=== PATIENT | male | born 1940 | race Caucasian/White ===

== ENCOUNTER 2019-06-21 13:02 | Day surgery (SDC) | payer MEDICARE ==
[~2019-06-21] VITALS: Ht 180.3 cm; Wt 78.5 kg
[~2019-06-21 13:02] MED LIST: BRIN10TA4 PO; CLAR10CA3 PO; CYMB1CAP4 PO; CYMB1CAP5 PO; DEXT10CA5 PO; ELIQ5TAB PO; FLON1SPR; LAMI1TAB7 PO; MAPA325T2 PO; MULTTAB86 PO; NAME28CA PO; NAPR250T4 PO; PHEN10TA3 PO; VALS1TAB66 PO; VYVA70CA3 PO; XANA0.5T PO
[2019-06-21] MEDS ORDERED: MIDAZOLAM INJ 2 MG/2 ML VIAL (J2250) As Ordered ONE (15:27)
[2019-06-21] MEDS ORDERED: CETACAINE SPRAY 5GM As Ordered ONE (15:45)
[2019-06-21 16:35] VITALS: BP 148/69
--- NOTE | 2019-06-21 20:59 | T-ECHO ---
DATE OF PROCEDURE: 06/21/2019 REFERRING PHYSICIAN: Dr. Mirza Paz INDICATION: 45-day post Watchman transesophageal echocardiogram ([facility]). PREPROCEDURE DIAGNOSIS: 45-day post Watchman transesophageal echocardiogram ([place]). POSTPROCEDURE DIAGNOSIS: 45-day post Watchman transesophageal echocardiogram ([place]). FINDINGS: Satisfactory status post Watchman left atrial appendage occluder device placement without residual gap in the left atrial appendage and without thrombus on the Watchman device. PROCEDURE PERFORMED BY: Mirza Paz MD DEMOLITION HAMMER OPERATOR: None. IV SEDATION: Midazolam 2 mg IV. COMPLICATIONS: None. DESCRIPTION OF PROCEDURE: The patient received Cetacaine spray to the back of the pharynx. He received a total of 2 mg of midazolam IV for sedation. Rhythm was sinus. Esophageal intubation was accomplished by Dr. Paz using a Tami three-dimensional transesophageal echocardiogram probe without difficulty. The left and right ventricles appeared normal in size and systolic function and without regional wall motion abnormalities. Left ventricle ejection fraction was 65% by visual estimate. Atrial septum was intact anatomically and by color flow Doppler. A Watchman left atrial appendage occluder device was well seated at the opening of the left atrial appendage with no residual gaps and without thrombus on the device. No pericardial effusion. Aortic valve was 3-cusp and displayed very mild focal thickening and focal calcific deposits. Trace aortic regurgitation. Mitral leaflets appeared structurally normal. Trace mitral regurgitation. Tricuspid and pulmonic valves were structurally and functionally normal and without regurgitation. Distal aortic arch and descending thoracic aorta showed mild atheroma. CONCLUSIONS: 1. Successful and satisfactory placement of a Watchman left atrial appendage closure device without residual gap between the device and the opening of the left atrial appendage. No thrombus on the Watchman device. 2. Normal left ventricle size and systolic function. Left ventricular ejection fraction (LVEF) 65% by visual estimate. No regional wall motion abnormalities. 3. No atrial septal defect. 4. Very mild aortic valve sclerosis of a 3-cusp aortic valve. Trace aortic regurgitation. 5. Mild atheroma in the distal aortic arch and descending thoracic aorta.
== END 2019-06-21 16:48 | disposition home or self-care (01) ==
LOC: M OPP 13:02
PROVIDERS: ATTEND Internal Medicine Cardiovascular Disease
DX: I48.0 Paroxysmal atrial fibrillation (principal)
CPT/HCPCS: 93312; 93320; 93325; J2250